=== PATIENT | female | born 1980 | race Asian ===

== ENCOUNTER 2019-09-20 13:05 | Outpatient (CLI) | payer BC ==
[2019-09-20] MEDS ORDERED: IOHEXOL 50 ML IV ONE (13:55)
== END 2019-09-20 16:00 | disposition home or self-care (01) ==
LOC: SRD 13:05
PROVIDERS: ATTEND Specialist
DX: N92.6 Irregular menstruation, unspecified (principal)
CPT/HCPCS: 58340; 74740; C1751; Q9967